=== PATIENT | female | born 2000 | race Caucasian/White ===

== ENCOUNTER 2019-08-04 22:24 | Outpatient (CLI) | payer BC, MEDICAID ==
[2019-08-04 23:28] LABS: APPEARANCE,URINE CLEAR; BILIRUBIN,URINE NEGATIVE (NEGATIVE); COLOR,URINE STRAW; GLUCOSE, URINE NEGATIVE (NEGATIVE); KETONES,URINE TRACE mg/dL (NEGATIVE); LEUKOCYTE ESTERASE,URINE NEGATIVE (NEGATIVE); NITRITE,URINE NEGATIVE (NEGATIVE); PROTEIN,URINE NEGATIVE (NEGATIVE); URINE SPECIFIC GRAVITY 1.004; UROBILINOGEN,URINE NEGATIVE mg/dL (<2.0)
[2019-08-04 23:40] LABS: URINE AMPHETAMINES SCREEN NEGATIVE; URINE BARBITURATES SCREEN NEGATIVE; URINE BENZODIAZEPINES SCREEN NEGATIVE; URINE COCAINE SCREEN NEGATIVE; URINE MARIJUANA (THC) SCREEN NEGATIVE; URINE METHADONE SCREEN NEGATIVE; URINE PHENCYCLIDINE SCREEN NEGATIVE
[2019-08-05] MEDS ORDERED: CEFTRIAXONE INJ 1000 MG VIAL IM ONE (00:09)
[2019-08-05] MEDS ORDERED: LIDOCAINE 1% INJ-PF (10 MG/ML) 30 ML SDV INJ ONE (00:09)
[2019-08-05] MEDS ORDERED: LIDOCAINE 1% INJ-PF (10 MG/ML) 30 ML SDV ONE (00:37)
[2019-08-05] MEDS ORDERED: CEFTRIAXONE INJ 1000 MG VIAL ONE (00:37)
== END 2019-08-05 00:59 | disposition home or self-care (01) ==
LOC: LC 22:24
PROVIDERS: ATTEND Student in an Organized Health Care Education/Training Program
PROC: 4A1HXCZ Monitoring of Products of Conception, Cardiac Rate, External Approach (ICD-10-PCS; principal; 2019-08-04)
DX: Z34.92 Encounter for supervision of normal pregnancy, unspecified, second trimester (principal); Z3A.21 21 weeks gestation of pregnancy
CPT/HCPCS: 59899; 87086; 81001; 80307; J3490; J0696

== ENCOUNTER → 2019-08-11 | Outpatient (CLI) | payer BC, MEDICAID ==
--- NOTE | 2019-08-11 10:15 | WOMENS IMAGING REPORT ---
EXAM DESCRIPTION: RETROPERITONEAL U/S COMPLETED DATE/TIME: 08/11/2019 8:46 am REASON FOR STUDY: N20.0 CALCULUS OF KIDNEY N20.0 CALCULUS OF KIDNEY COMPARISON: None. TECHNIQUE: Dynamic and static grayscale images acquired of the kidneys and bladder and recorded on P ACS. Additional selected color Doppler and spectral images recorded. LIMITATIONS: None. FINDINGS: RIGHT KIDNEY: 12 cm in length Normal echogenicity. No solid or suspicious masses. P atient is 23 weeks . The AP diameter of the right renal pelvis is 15 mm. This likely repres ents hydronephrosis of . No no right-sided intrarenal calcifications. LEFT KIDNEY: Normal size, 11.2 cm in length. Normal echogenicity. No solid or suspicious masses. No hydronephrosis. No calcifications. BLADDER: No masses. Left ureteral jet is identified OTHER FINDINGS: No other significant finding. IMPRESSION: Right-sided hydronephrosis, AP diameter of the renal pelvis 15 mm. This most likely rep resents hydronephrosis of . Patient is 23 weeks TECHNICAL DOCUMENTATION: JOB ID: [id number]- All Rights Reserved Reading location - IP/workstation name: [email or web address]
== END ==
LOC: WI 08:22
PROVIDERS: ATTEND Obstetrics & Gynecology
DX: N20.0 Calculus of kidney (principal)
CPT/HCPCS: 76770

== ENCOUNTER 2019-12-18 02:56 | Inpatient (IN) | payer BC, MEDICAID ==
[2019-12-18 03:14] LABS: APPEARANCE,URINE SLIGHTLY-CLOUDY; BILIRUBIN,URINE NEGATIVE (NEGATIVE); COLOR,URINE YELLOW; GLUCOSE, URINE NEGATIVE (NEGATIVE); KETONES,URINE NEGATIVE (NEGATIVE); LEUKOCYTE ESTERASE,URINE NEGATIVE (NEGATIVE); NITRITE,URINE NEGATIVE (NEGATIVE); PROTEIN,URINE NEGATIVE (NEGATIVE); UROBILINOGEN,URINE NEGATIVE mg/dL (<2.0)
[2019-12-18 03:32] LABS: URINE AMPHETAMINES SCREEN NEGATIVE; URINE BARBITURATES SCREEN NEGATIVE; URINE BENZODIAZEPINES SCREEN NEGATIVE; URINE COCAINE SCREEN NEGATIVE; URINE MARIJUANA (THC) SCREEN NEGATIVE; URINE METHADONE SCREEN NEGATIVE; URINE PHENCYCLIDINE SCREEN NEGATIVE
[2019-12-18] MEDS ORDERED: RINGERS SOLUTION,LACTATED 1,000 ML IV ONE (05:56)
[2019-12-18] MEDS ORDERED: RINGERS SOLUTION,LACTATED 1,000 ML IV PRN (05:56)
[2019-12-18] MEDS ORDERED: MISOPROSTOL 0.2 MG TABLET ONE (06:23)
[2019-12-18] MEDS ORDERED: OXYTOCIN 10 UNIT/ML VIAL ONE (06:23)
[2019-12-18] MEDS ORDERED: OXYTOCIN/NORMAL SALINE 20 UNIT/1,000 ML RTUINJ ONE (06:23)
[2019-12-18] MEDS ORDERED: LIDOCAINE 1% INJ-PF (10 MG/ML) 30 ML SDV ONE (06:23)
[2019-12-18 06:45] LABS: ABSOLUTE MONOCYTES (AUTO) 0.5 10^3/uL (0.1-1.4); ABSOLUTE NEUT (AUTO) 12.4 10^3/uL (1.7-8.2); EOSINOPHILS % (AUTO) 0.1 % (0-6); HEMATOCRIT 32.4 % (36.0-47.0); HEMOGLOBIN 11.2 g/dL (12.0-15.5); MEAN CORPUSCULAR HEMOGLOBIN 30.4 pg (27.0-33.4); MEAN CORPUSCULAR HGB CONC 34.6 g/dL (32.0-36.0); MEAN CORPUSCULAR VOLUME 88 fl (80-97); MONOCYTES % (AUTO) 3.8 % (3-13); PLATELET COUNT 201 10^3/uL (150-450); RED BLOOD COUNT 3.68 10^6/uL (3.72-5.28); SEGMENTED NEUTROPHILS % (AUTO) 89.1 % (42-78); TOTAL CELLS COUNTED % (AUTO) 100 %; WHITE BLOOD COUNT 13.9 10^3/uL (4.0-10.5)
[2019-12-18] MEDS ORDERED: OXYTOCIN/NORMAL SALINE 20 UNIT/1,000 ML RTUINJ IV PRN ×2 (07:14→15:21)
[2019-12-18] MEDS ORDERED: ONDANSETRON HCL INJ/PF 4 MG/2 ML SDV IV PRN (07:35)
[2019-12-18] MEDS ORDERED: NALBUPHINE HCL INJ 10 MG/1 ML AMPULE INJ ONE (07:35)
--- NOTE | 2019-12-18 07:35 | Admission Physical ---
Datetime Report Generated by CPN: 12/18/2019 07:35 CURRENT ADMISSION Chief Complaint: Uterine Contractions Indication for Induction: Post Dates Admit Impression : Term, Intrauterine ; Active Labor Admit Impression- Other: Early Active labor Admit Plan: Admit to Unit; Initiate Labor Protocol ALLERGIES Medication Allergies: No Medication Allergies: No Known Allergies (08/05/2019) Latex: Unknown Food Allergies: none Environmental Allergies: none OBSTETRICAL HISTORY EDC: 12/12/2019 00:00 : 1 Para: 0 Term: 0 : 0 SAB: 0 IAB: 0 Livin Gestational Diabetes: No Rh Sensitization: No Incompetent Cervix: No JEREMY: No Infertility: No ART Treatment: No Uterine Anomaly: No IUGR: No Hx Previous C/S: No Macrosomia: No Hx Loss/Stillborn: No PIH: No Hx : No Placenta Previa/Abruption: No Depression/PP Depression: No PTL/PROM: No Post Hemorrhage: No Obstetrical History Comments: G1: current SEE RECORDS Alcohol: No Marijuana : No Cocaine: No Other Illicit Drugs: No Cigarettes: Never Smoker. [id number] MEDICAL HISTORY Diabetes: No Blood Transfusion: No Pulmonary Disease (Asthma, TB): No Breast Disease: No Hypertension: No I&C Tech Surgery: No Heart Disease: No Hosp/Surgery: No Autoimmune Disorder: No Anesthetic Complications: No Kidney Disease: No Abnormal Pap Smear: No Neuro/Epilepsy: No Psychiatric Disorders: No Other Medical Diseases: No Hepatitis/Liver Disease: No Significant Family History: No Varicosities/Phlebitis: No Trauma/Violence : No Thyroid Dysfunction: No INFECTIOUS HISTORY Gonorrhea: No Genital Herpes: No Chlamydia: No Tuberculosis: No Syphilis: No Hepatitis: No HIV/AIDS Exposure: No Rash or Viral Illness: No HPV: No PHYSICAL EXAM General: Normal HEENT: Normal Neurologic: Normal Thyroid: Deferred Heart: Normal Lungs: Normal Breast: Deferred Back: Normal Abdomen: Normal Genitourinary Exam: Normal Extremities: Normal DTRs: Normal Pelvic Type: Adequate Vital Signs: Reviewed VAGINAL EXAM Dilatation: 3 Effacement: 90 Station: -1 Contraction Comments: q 4 MEMBRANES Membranes: Intact FETUS A EGA: 40.6 Monitoring: External US FHR- Baseline: 120 Variability: Moderate 6-25bpm Accelerations: 15X15 Decelerations: None FHR Category: Category I Presentation: Vertex Admit Comment: 19yo at 40+6ega presents for early labor and changed from FT to 2 cm since last week and now is /-1. Admit and augment with Pitocin. GBS negative. 44# weight gain. Consents obtained. Pt was scheduled for IOL tonight for cervidil but will admit now and augment. PLANS FOR LABOR AND DELIVERY Labor and Delivery: None Pain Management: Epidural Feeding Preference: Breast Benefit of Breast Feed Discussed: Yes Circumcision: N/A INFORMED CONSENT Informed Consent Obtained: Vaginal Delivery; Risks, Benefits and Alternatives Discussed Signature: with User ID: [email or web address]
[2019-12-18] MEDS ORDERED: NALBUPHINE HCL INJ 10 MG/1 ML AMPULE ONE (07:39)
[2019-12-18] MEDS ORDERED: ONDANSETRON HCL INJ/PF 4 MG/2 ML SDV ONE (07:40)
[2019-12-18] MEDS ORDERED: EPHEDRINE SULFATE INJ 50 MG/1 ML AMPULE ONE (09:15)
[2019-12-18] MEDS ORDERED: BUPIVACAINE HCL 0.25 % INJ/PF (2.5 MG/1 ML) 30 ML VIAL ONE (09:16)
[2019-12-18] MEDS ORDERED: FENTANYL/BUPIVACAINE/NS/PF 300 MCG/150 ML RTUINJ EPI ONE (09:16)
[2019-12-18] MEDS ORDERED: DIPH/PERTUSS(ACELL)/TETANUS VAC/PF 0.5 ML SYR (>=10YO) IM PRN (15:21)
[2019-12-18] MEDS ORDERED: PROMETHAZINE HCL 25 MG TABLET PO PRN (15:21)
[2019-12-18] MEDS ORDERED: MAGNESIUM HYDROXIDE SUSP 30 ML UDCUP PO PRN (15:21)
[2019-12-18] MEDS ORDERED: NA PHOS,M-B/NA PHOS,DI-BA (ADULT) 133 ML ENEMA PR PRN (15:21)
[2019-12-18] MEDS ORDERED: DIBUCAINE 1% OINTMENT 28 GM TP PRN (15:21)
[2019-12-18] MEDS ORDERED: PROMETHAZINE HCL INJ 25 MG/1 ML VIAL IV PRN (15:21)
[2019-12-18] MEDS ORDERED: PSEUDOEPHEDRINE HCL 30 MG TABLET PO PRN (15:21)
[2019-12-18] MEDS ORDERED: PROMETHAZINE HCL 25 MG SUPP.RECT PR PRN (15:21)
[2019-12-18] MEDS ORDERED: ACETAMINOPHEN 325 MG TABLET PO PRN (15:21)
[2019-12-18] MEDS ORDERED: GLYCERIN/WITCH HAZEL LEAF 1 EACH MED..WIPE TP PRN (15:21)
[2019-12-18] MEDS ORDERED: MEASLES,MUMPS&RUBELLA VACC/PF 0.5 ML VIAL SUBCUT PRN (15:21)
[2019-12-18] MEDS ORDERED: DIPHENHYDRAMINE HCL 25 MG CAPSULE PO PRN (15:21)
[2019-12-18] MEDS ORDERED: IBUPROFEN 800 MG TABLET ONE (16:35)
[2019-12-18] MEDS: IBUPROFEN 800 MG TABLET PO SCH ×2 (16:36→22:11)
--- NOTE | 2019-12-18 17:30 | Delivery Summary ---
Del Sum A-C Datetime Report Generated by CPN: 12/18/2019 17:30 DELIVERY PERSONNEL DELIVERY PERSONNEL: [id number] Delivery Doctor:: Sakina Worley CNM Labor and Delivery Nurse:: Kristan Emery RNlabel stitcher Nurse:: Cindi Saravia RN Nursery Nurse:: Martha Crawford RN [employer] Librarian/MOTOR TEACHER: Lore Ross, BASTING MARKER MATERNAL INFORMATION Delivery Anesthesia: Epidural Medications After Delivery: Pitocin Bolus-Please Comment; Pitocin Drip 20 Units/1000ml NSS Meds After Delivery Comment: 20 Units Pitocin/1000ml NS Delivery QBL: 529 Maternal Complications: None Provider Comments: pt allowed to labor down then started pushing and after much coaching went on to deliver a viable baby girl. Baby with spontaneous cry and vigorous respiratory effort at . Particulate meconinum noted at delivery. Baby wiped per mother's request and then placed on maternal abdomen, cord allowed to stop pulsating then clamped x2 and cut by FOB (3vc noted, cord blood collected). Placenta delivered spontaneously intact (circumvallate placenta noted and sent to lab) trailing membranes removed with ring forceps, bleeding stable (vaginal sweep done). Vaginal and perineal inspection revealed lacerations as stated above and hemostatic. Fundus firm, minimal bleeding, mother and baby stable upon exiting the room LABOR SUMMARY EDC: 12/12/2019 00:00 No. Babies in Womb: 1 Attempted: No Labor Anesthesia: Epidural LABOR INFORMATION Reason for Induction: Not Applicable Onset of Labor: 12/18/2019 04:00 Complete Dilatation: 12/18/2019 11:32 Oxytocin: Augmentation Group B Beta Strep: negative Antibiotics # of Doses: 0 Antibiotics Time of Last Dose: n/a Name of Antibiotic Given: n/a Steroids Given: None Reason Steroids Not Administered: Not Applicable MEMBRANES Membranes Rupture Method: Artificial Rupture of Membranes: 12/18/2019 11:32 Length of Rupture (hr): 3.13 Amniotic Fluid Color: Light Meconium Amniotic Fluid Amount: Moderate Amniotic Fluid Odor: None STAGES OF LABOR Stage 1 hr: 7 Stage 1 min: 32 Stage 2 hr: 3 Stage 2 min: 8 Stage 3 hr: 0 Stage 3 min: 9 Total Time in Labor hr: 10 Total Time in Labor min: 49 VAGINAL DELIVERY Episiotomy: None Laceration #1: Perineal; Vaginal Laceration Extension #1: First Degree Other Laceration: labial Laceration Repair: Yes Laceration Repair Note: MLL repaired in the usual fashion with 2-[address] Friable tissue but able to achieve hemostasis. Labial abrasion hemostatic, no need for repair Sponge Count Correct: Vaginal Sweep Performed Sharps Count Correct: Yes CSECTION DELIVERY Primary Indication: N/A Secondary Indication: N/A CSection Incidence: N/A Labor: N/A Elective: N/A CSection Incision: N/A BABY A INFORMATION Delivery Date/Time: 12/18/2019 14:40 Method of Delivery: Vaginal Born in Route : No : Failed Forceps: N/A Vacuum Extraction: N/A Shoulder Dystocia : No PRESENTATION/POSITION BABY A Presentation: Cephalic Cephalic Presentation: Vertex Vertex Position: Left Occipital Anterior Breech Presentation: N/A PLACENTA INFORMATION BABY A Placenta Delivery Time : 12/18/2019 14:49 Placenta Method of Delivery: Spontaneous Placenta Status: Delivered SCORES BABY A Heart Rate 1 min: >100 bpm Resp Effort 1 min: Good Cry Reflex Irritability 1 min: Cough or Sneeze or Pulls Away Muscle Tone 1 min: Active Motion Color 1 min: Blue/Pale Resuscitation Effort 1 min: Tactile Stimulation SCORE 1 MIN: 8 Heart Rate 5 min: >100 bpm Resp Effort 5 min: Good Cry Reflex Irritability 5 min: Cough or Sneeze or Pulls Away Muscle Tone 5 min: Active Motion Color 5 min: Body Wilcox, Extremities Blue Resuscitation Effort 5 min: Tactile Stimulation SCORE 5 MIN: 9 INFORMATION BABY A Gestational Age at Delivery: 40.6 Gestational Status: Full Term- 39- 40.6 Weeks Infant Outcome : Liveborn Infant Condition : Stable Sex: Female IDENTIFICATION BABY A Verification Date/Time: 12/18/2019 14:56 ID Band Number: [id number] Mother's Name Verified: Yes Infant RN Verifying : K.Crimm, RN Additional Verifying Personnel: MMobley,RN WEIGHT/LENGTH BABY A Birthweight (gm): 3833 Weight (lb): 8 Weight (oz): 7 Infant Length (in): 21.00 Infant Length (cm): 53.34 CORD INFORMATION BABY A No. Cord Vessels: 3 Nuchal Cord : N/A Cord Blood Taken: Yes-For Storage (Mom's Blood type +) Suction: None ASSESSMENT BABY A Infant Complications: Meconium Physical Findings at Delivery: Within Normal Limits Respirations: Appears Normal Skin to Skin: Yes Skin to Skin Time (min): 60 Care By: KCrimm, RN Transferred To: Remains with Mother BABY B INFORMATION : N/A SIGNATURES Assignment: Tor Forrester MD Signature: with User ID: Chana : with User ID: [email or web address]
[2019-12-18] MEDS ORDERED: LABETALOL HCL 200 MG TABLET PO SCH (18:00)
--- NOTE | 2019-12-18 18:35 | PDOC CONSULTATION ---
Consultation Consult Date: 12/18/19 Provider Consulted: ONEYDA FU Consult reason:: SVT History of Present Illness Admission Date/PCP: 12/18/19 05:59 COREY LEGER CNM Patient complains of: No complaints. She is History of Present Illness: SWATI DELGADO is a 19 year old female With no significant prior medical history. It appears that while the heart rate was being monitored the maternal heart rate was at times documented as 240 bpm and on other occasions 120 bpm. A twelve-lead EKG was obtained which showed sinus tachycardia. 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 This is her first and she was delivered of a healthy baby girl. The as well as delivery were uneventful. Patient did mention that her usual resting heart rate was mildly elevated and is in the low 100s. She does not report history suggestive of SVT such as episodes of palpitations presyncope or syncope or dizziness. No childhood illnesses reported. No surgeries or implants reported. She does not report use of tobacco to me. No familial illnesses reported to me. Social History Smoking Status: Never Smoker Family History Parental Family History Reviewed: No - No familial illnesses Children Family History Reviewed: Yes Sibling(s) Family History Reviewed.: NA Medication/Allergy Home Medications: Cetirizine HCl [Zyrtec 10 mg Tablet] 1 tab PO DAILY 08/04/19 Pnv No.95/Ferrous Fum/Folic AC [ Multivitamin Tablet] 1 each PO DAILY 08/04/19 Allergies/Adverse Reactions: No Known Allergies Allergy (Verified 08/05/19 04:44) Review of Systems Constitutional: ABSENT: as per HPI, anorexia, chills, fatigue, fever(s), headache(s), night sweats, weakness, weight gain, weight loss, other Ears: ABSENT: as per HPI, hearing changes, other Breasts: ABSENT: as per HPI, other Gastrointestinal: ABSENT: as per HPI, abdominal pain, bloating, coffee ground emesis, constipation, diarrhea, dysphagia, heartburn, hematemesis, hematochezia, melena, nausea, vomiting, other Neurological: ABSENT: as per HPI, abnormal gait, abnormal movements, abnormal speech, confusion, convulsions, dizziness, focal weakness, frequent falls, lack of coordination, memory loss, numbness, paresthesias, restless legs, syncope, tingling, tremor(s), vertigo, weakness, other Physical Exam Vital Signs: Intake & Output 12/17/19 12/18/19 12/19/19 06:59 06:59 06:59 Weight 72.9 kg General appearance: PRESENT: no acute distress, cooperative, well-developed Head exam: PRESENT: atraumatic, normocephalic Eye exam: PRESENT: conjunctiva pink, EOMI Mouth exam: PRESENT: moist, neck supple Respiratory exam: PRESENT: clear to auscultation ann, symmetrical, unlabored Cardiovascular exam: PRESENT: RRR, +S1, +S2, tachycardia Pulses: PRESENT: normal carotid pulses, normal radial pulses GI/Abdominal exam: PRESENT: soft Rectal exam: PRESENT: deferred Musculoskeletal exam: PRESENT: normal inspection Neurological exam: PRESENT: alert, awake, oriented to person, oriented to place, oriented to time, oriented to situation Psychiatric exam: PRESENT: appropriate affect Skin exam: PRESENT: dry, intact Results Laboratory Results: 12/18/19 06:24 12/18/19 12/18/19 12/18/19 03:03 06:24 06:24 WBC 13.9 H RBC 3.68 L Hgb 11.2 L Hct 32.4 L MCV 88 MCH 30.4 MCHC 34.6 RDW 14.0 Plt Count 201 Seg Neutrophils % 89.1 H Urine Color YELLOW Urine Appearance SLIGHTLY-CLOUDY Urine pH 6.0 Ur Specific [place] 1.010 Urine Protein NEGATIVE Urine Glucose (UA) NEGATIVE Urine Ketones NEGATIVE Urine Blood MODERATE H Urine Nitrite NEGATIVE Ur Leukocyte Esterase NEGATIVE Blood Type O POSITIVE Antibody Screen NEGATIVE EKG Comments: Twelve-lead EKG 12/18/2019 (5103). Independently reviewed by me. Sinus tachycardia 128 bpm, normal AV conduction, QTC is 450 ms White blood cell count is 13.9 Platelet count 201 Assessment & Plan - Diagnosis (1) Tachycardia with heart rate 100-120 beats per minute Is this a current diagnosis for this admission?: Yes Plan: Available evidence and twelve-lead EKG suggest the presence of sinus tachycardia which would be appropriate for the patient's current state. Monitor printouts had shown elevated maternal heart rates greater than 200 bpm. However the patient was completely asymptomatic and other other times the heart rate was half of this. Without the presence of documented telemetry strips showing the presence of supraventricular tachycardia it is rather difficult to entertain such a clarisse gnosis as monitor counters can be subject to interference and double counting amount other errors. If the patient does have symptoms of palpitation would recommend placing her on telemetry and obtaining a twelve-lead EKG should she become symptomatic. In the present circumstance, would not recommend initiation of pharmacotherapy. We will continue to follow.
[2019-12-18] MEDS: DOCUSATE SODIUM 100 MG CAPSULE PO SCH (18:41)
[2019-12-18] MEDS: FERROUS SULFATE 325 MG TABLET PO SCH (18:41)
[2019-12-18] MEDS: BENZOCAINE/MENTHOL AEROSOL SPRAY 56 ML TOP PRN (18:54)
--- NOTE | 2019-12-18 19:10 | EKG REPORT ---
SEVERITY:- OTHERWISE NORMAL ECG - SINUS TACHYCARDIA : Confirmed by: Jose Ivey MD 18-Dec-2019 19:09:02
[2019-12-18] MEDS: FAMOTIDINE 20 MG TABLET PO SCH (22:11)
[2019-12-19] MEDS: IBUPROFEN 800 MG TABLET PO SCH ×3 (05:20→22:08)
[2019-12-19] MEDS: BENZOCAINE/MENTHOL AEROSOL SPRAY 56 ML TOP PRN (05:21)
[2019-12-19 07:04] LABS: HEMATOCRIT 19.6 % (36.0-47.0); MEAN CORPUSCULAR HGB CONC 35.2 g/dL (32.0-36.0); MEAN CORPUSCULAR VOLUME 88 fl (80-97); PLATELET COUNT 183 10^3/uL (150-450); RED BLOOD COUNT 2.23 10^6/uL (3.72-5.28); RED CELL DISTRIBUTION WIDTH 14.4 % (11.5-14.0); WHITE BLOOD COUNT 13.8 10^3/uL (4.0-10.5)
[2019-12-19 07:11] LABS: HEMOGLOBIN 6.9 g/dL (12.0-15.5)
[2019-12-19] MEDS: SENNOSIDES/DOCUSATE 8.6-50 MG 1 EACH TABLET PO SCH (10:17)
[2019-12-19] MEDS: DOCUSATE SODIUM 100 MG CAPSULE PO SCH ×2 (10:17→17:54)
[2019-12-19] MEDS: PRENATAL VITAMIN W DHA CAPSULE PO SCH (10:17)
[2019-12-19] MEDS: FERROUS SULFATE 325 MG TABLET PO SCH ×2 (10:17→17:54)
[2019-12-19] MEDS: FAMOTIDINE 20 MG TABLET PO SCH ×2 (10:17→22:08)
--- NOTE | 2019-12-19 12:41 | PDOC PROGRESS REPORT ---
Subjective Progress Note for:: 12/19/19 Subjective:: Patient was seen and examined today. She is resting in a chair. Her baby is being breast-fed. She does not report any palpitations. No tachycardia is reported. Reason For Visit: Physical Exam Vital Signs: Temp Pulse Resp BP Pulse Ox 97.6 F 105 H 16 104/59 L 100 12/19/19 11:08 12/19/19 11:08 12/19/19 11:08 12/19/19 11:08 12/19/19 11:08 Intake & Output 12/18/19 12/19/19 12/20/19 06:59 06:59 06:59 Weight 72.9 kg General appearance: PRESENT: no acute distress, cooperative, well-developed, well-nourished Head exam: PRESENT: atraumatic, normocephalic Eye exam: PRESENT: conjunctiva pink, EOMI Respiratory exam: PRESENT: clear to auscultation ann, symmetrical, unlabored Cardiovascular exam: PRESENT: RRR, +S1, +S2 Pulses: PRESENT: normal radial pulses Rectal exam: PRESENT: deferred Neurological exam: PRESENT: alert, awake, oriented to person, oriented to place, oriented to time, oriented to situation Psychiatric exam: PRESENT: appropriate affect Skin exam: PRESENT: dry, intact, normal color Results Laboratory Results: 12/19/19 06:23 12/19/19 06:23 WBC 13.8 H RBC 2.23 L Hgb 6.9 L D Hct 19.6 L MCV 88 MCH 31.0 MCHC 35.2 RDW 14.4 H Plt Count 183 Assessment & Plan - Diagnosis (1) Tachycardia with heart rate 100-120 beats per minute Is this a current diagnosis for this admission?: Yes Plan: No palpitations reported No documented arrhythmia Sinus tachycardia will be quite appropriate for state. Hopefully the heart rate should come down Would hold off on initiation of antiarrhythmic therapy or rate control agents.
--- NOTE | 2019-12-19 16:53 | PDOC PROGRESS REPORT ---
Subjective-OB Progress Note for:: 12/19/19 Subjective: reports bleeding slowing, pain controlled with current meds. denies needs Physical Exam (OB) Vital Signs: Temp Pulse Resp BP Pulse Ox 97.4 F 121 H 16 117/64 100 12/19/19 15:21 12/19/19 15:21 12/19/19 15:21 12/19/19 15:21 12/19/19 15:21 Intake & Output 12/18/19 12/19/19 12/20/19 06:59 06:59 06:59 Weight 72.9 kg - Abdomen Description: Soft Hernia Present: No Fundal Description: Firm, Midline Fundal Height: u/u - u/2 - Abdominal Distension: No distension Tenderness: Nontender - Extremities Lower extremities: Dai's sign - neg Calf: Normal, Nontender Objective-Diagnostic Laboratory: 12/19/19 06:23 12/19/19 06:23 WBC 13.8 H RBC 2.23 L Hgb 6.9 L D Hct 19.6 L MCV 88 MCH 31.0 MCHC 35.2 RDW 14.4 H Plt Count 183 Assessment and Plan(PN) - Time Spent with Patient Time with patient: Less than 15 minutes - Disposition Anticipated Discharge: Home Within: within 24 hours
[2019-12-20] MEDS: IBUPROFEN 800 MG TABLET PO SCH ×3 (05:07→21:04)
[2019-12-20 07:33] LABS: ABSOLUTE EOSINOPHILS # (AUTO) 0.1 10^3/uL (0.0-0.6); ABSOLUTE LYMPHOCYTES (AUTO) 1.3 10^3/uL (0.5-4.7); ABSOLUTE MONOCYTES (AUTO) 0.5 10^3/uL (0.1-1.4); ABSOLUTE NEUT (AUTO) 7.7 10^3/uL (1.7-8.2); BASOPHILS % (AUTO) 0.1 % (0-2); EOSINOPHILS % (AUTO) 1.2 % (0-6); HEMATOCRIT 19.3 % (36.0-47.0); LYMPHOCYTES % (AUTO) 13.9 % (13-45); MEAN CORPUSCULAR HGB CONC 35.5 g/dL (32.0-36.0); MEAN CORPUSCULAR VOLUME 88 fl (80-97); MONOCYTES % (AUTO) 5.4 % (3-13); PLATELET COUNT 161 10^3/uL (150-450); RED BLOOD COUNT 2.21 10^6/uL (3.72-5.28); RED CELL DISTRIBUTION WIDTH 14.3 % (11.5-14.0); SEGMENTED NEUTROPHILS % (AUTO) 79.4 % (42-78); TOTAL CELLS COUNTED % (AUTO) 100 %; WHITE BLOOD COUNT 9.7 10^3/uL (4.0-10.5)
[2019-12-20 07:44] LABS: HEMOGLOBIN 6.9 g/dL (12.0-15.5)
[2019-12-20] MEDS ORDERED: IRON SUCROSE COMPLEX INJ/PF 100 MG/5 ML SDV IV ONE (08:45)
[2019-12-20] MEDS: PRENATAL VITAMIN W DHA CAPSULE PO SCH (10:35)
[2019-12-20] MEDS: DOCUSATE SODIUM 100 MG CAPSULE PO SCH ×2 (10:35→17:06)
[2019-12-20] MEDS: SENNOSIDES/DOCUSATE 8.6-50 MG 1 EACH TABLET PO SCH (10:35)
[2019-12-20] MEDS: FAMOTIDINE 20 MG TABLET PO SCH ×2 (10:35→21:05)
[2019-12-20] MEDS: FERROUS SULFATE 325 MG TABLET PO SCH ×2 (10:35→17:06)
[2019-12-20] MEDS ORDERED: NORMAL SALINE 250 ML IV PRN (11:36)
--- NOTE | 2019-12-20 15:13 | PDOC PROGRESS REPORT ---
Subjective-OB Progress Note for:: 12/20/19 Subjective: 19yo G1 now P1 s/p ppd 2. Pt ambulating, voiding and without difficulty, pale and remains tachycardic. Reports pain well controlled by medication, no concerns today, other than very tired. Agreeable to blood transfusion, baby on bili lights, will not be discharged today Physical Exam (OB) Vital Signs: Temp Pulse Resp BP Pulse Ox 97.8 F 107 H 16 115/77 100 12/20/19 11:07 12/20/19 11:07 12/20/19 11:07 12/20/19 11:07 12/20/19 11:07 - General General Appearance: Appears well In distress: None - PIH/Pre-Eclampsia DTR's: 1 + Clonus: Negative Headache: Absent Epigastric Pain: No Visual Changes: No - Episiotomy/Laceration Site Condition: Well Approximated - Lochia Lochia Amount: Scant < 10 ml Lochia Color: Rubra/Red - Abdomen Description: Soft, Round Hernia Present: No Fundal Description: Firm, Midline Fundal Height: u/u - u/2 - Respiratory Respiratory Status: No respiratory distress - Extremities Upper extremity: Normal inspection Lower extremities: Normal inspection - Neurological Cognition: Normal Orientation: AAOx4 - Psychological Associated symptoms: Normal affect, Normal mood Objective-Diagnostic Laboratory: 12/20/19 06:57 12/18/19 12/20/19 06:24 06:57 WBC 9.7 RBC 2.21 L Hgb 6.9 L Hct 19.3 L MCV 88 MCH 31.0 MCHC 35.5 RDW 14.3 H Plt Count 161 Seg Neutrophils % 79.4 H Blood Type O POSITIVE Antibody Screen NEGATIVE Assessment and Plan(PN) - Assessment and Plan (1) Blood transfusion during current hospitalisation Is this a current diagnosis for this admission?: Yes Plan: ordered, will plan on repeat CBC tonight (2) Active labor at term Is this a current diagnosis for this admission?: Yes Plan: delivered (3) Acute blood loss anemia Is this a current diagnosis for this admission?: Yes Plan: increase dietary iron and FeSO4 BID agreeable to blood transfusion and IV iron also given (4) Labial abrasion, delivered, current hospitalization Is this a current diagnosis for this admission?: Yes Plan: continue to monitor for s/s of infection (5) Perineal laceration during delivery, delivered Is this a current diagnosis for this admission?: Yes Plan: continue to monitor for s/s of pre-e infection (6) hemorrhage Qualifiers: hemorrhage type: third-stage Qualified Code(s): O72.0 - Third- stage hemorrhage Is this a current diagnosis for this admission?: Yes Plan: agreeable to blood transfusion continue to monitor, pt stable at this time (7) Tachycardia with heart rate 100-120 beats per minute Is this a current diagnosis for this admission?: Yes Plan: EKG after delivery, cleared by cardiac consult, continue to monitor (8) Vaginal delivery Is this a current diagnosis for this admission?: Yes Plan: routine pp care - Time Spent with Patient Time with patient: 15-25 minutes Medications reviewed and adjusted accordingly: Yes - Disposition Anticipated Discharge: Home Within: within 24 hours
[2019-12-21 00:32] LABS: HEMATOCRIT 27.1 % (36.0-47.0); MEAN CORPUSCULAR HEMOGLOBIN 31.1 pg (27.0-33.4); MEAN CORPUSCULAR HGB CONC 35.1 g/dL (32.0-36.0); MEAN CORPUSCULAR VOLUME 88 fl (80-97); PLATELET COUNT 190 10^3/uL (150-450); RED BLOOD COUNT 3.06 10^6/uL (3.72-5.28); RED CELL DISTRIBUTION WIDTH 14.3 % (11.5-14.0); WHITE BLOOD COUNT 13.7 10^3/uL (4.0-10.5)
[2019-12-21 00:33] LABS: HEMOGLOBIN 9.5 g/dL (12.0-15.5)
[2019-12-21] MEDS: IBUPROFEN 800 MG TABLET PO SCH (05:07)
[2019-12-21 08:39] VITALS: BP 121/83
[2019-12-21] MEDS: SENNOSIDES/DOCUSATE 8.6-50 MG 1 EACH TABLET PO SCH (09:24)
[2019-12-21] MEDS: DOCUSATE SODIUM 100 MG CAPSULE PO SCH (09:24)
[2019-12-21] MEDS: FERROUS SULFATE 325 MG TABLET PO SCH (09:24)
[2019-12-21] MEDS: FAMOTIDINE 20 MG TABLET PO SCH (09:24)
[2019-12-21] MEDS: PRENATAL VITAMIN W DHA CAPSULE PO SCH (09:24)
--- NOTE | 2019-12-21 11:34 | PDOC DISCHARGE SUMMARY ---
Impression - Admit/DC Date/PCP Admission Date/Primary Care Provider: 12/18/19 05:59 KESHIA AWAN MD Discharge Date: 12/21/19 - Discharge Diagnosis (1) Active labor at term Is this a current diagnosis for this admission?: Yes (2) Acute blood loss anemia Is this a current diagnosis for this admission?: Yes (3) Blood transfusion during current hospitalisation Is this a current diagnosis for this admission?: Yes (4) Labial abrasion, delivered, current hospitalization Is this a current diagnosis for this admission?: Yes (5) Perineal laceration during delivery, delivered Is this a current diagnosis for this admission?: Yes (6) hemorrhage Is this a current diagnosis for this admission?: Yes (7) Tachycardia with heart rate 100-120 beats per minute Is this a current diagnosis for this admission?: Yes (8) Vaginal delivery Is this a current diagnosis for this admission?: Yes - Additional Information Resuscitation Status: Full Code Discharge Diet: Regular Discharge Activity: Activity As Tolerated, No Lifting Over 10 Pounds, No tub bath Referrals: KESHIA AWAN MD [Primary Care Provider] - Home Medications: Cetirizine HCl [Zyrtec 10 mg Tablet] 1 tab PO DAILY 08/04/19 Pnv No.95/Ferrous Fum/Folic AC [ Multivitamin Tablet] 1 each PO DAILY 08/04/19 HPI Gestational Age: 40.6 Reason(s) for Admission: Onset of Labor Procedures: NST Intrapartum Procedure(s): Spontaneous Vaginal Delivery Complication(s): Laceration-Vaginal Laceration-Degree: 1st Results Laboratory Results: WBC 13.7 10^3/uL (4.0-10.5) H 12/21/19 00:23 RBC 3.06 10^6/uL (3.72-5.28) L 12/21/19 00:23 Hgb 9.5 g/dL (12.0-15.5) L D 12/21/19 00:23 Hct 27.1 % (36.0-47.0) L 12/21/19 00:23 MCV 88 fl (80-97) 12/21/19 00:23 MCH 31.1 pg (27.0-33.4) 12/21/19 00:23 MCHC 35.1 g/dL (32.0-36.0) 12/21/19 00:23 RDW 14.3 % (11.5-14.0) H 12/21/19 00:23 Plt Count 190 10^3/uL (150-450) 12/21/19 00:23 Lymph % (Auto) 13.9 % (13-45) 12/20/19 06:57 [place] % (Auto) 5.4 % (3-13) 12/20/19 06:57 Eos % (Auto) 1.2 % (0-6) 12/20/19 06:57 Baso % (Auto) 0.1 % (0-2) 12/20/19 06:57 Absolute Neuts (auto) 7.7 10^3/uL (1.7-8.2) 12/20/19 06:57 Absolute Lymphs (auto) 1.3 10^3/uL (0.5-4.7) 12/20/19 06:57 Absolute Monos (auto) 0.5 10^3/uL (0.1-1.4) 12/20/19 06:57 Absolute Eos (auto) 0.1 10^3/uL (0.0-0.6) 12/20/19 06:57 Absolute Basos (auto) 0.0 10^3/uL (0.0-0.2) 12/20/19 06:57 Seg Neutrophils % 79.4 % (42-78) H 12/20/19 06:57 Urine Color YELLOW 12/18/19 03:03 Urine Appearance SLIGHTLY-CLOUDY 12/18/19 03:03 Urine pH 6.0 (5.0-9.0) 12/18/19 03:03 Ur Specific [place] 1.010 12/18/19 03:03 Urine Protein NEGATIVE mg/dL (NEGATIVE) 12/18/19 03:03 Urine Glucose (UA) NEGATIVE mg/dL (NEGATIVE) 12/18/19 03:03 Urine Ketones NEGATIVE mg/dL (NEGATIVE) 12/18/19 03:03 Urine Blood MODERATE (NEGATIVE) H 12/18/19 03:03 Urine Nitrite NEGATIVE (NEGATIVE) 12/18/19 03:03 Urine Bilirubin NEGATIVE (NEGATIVE) 12/18/19 03:03 Urine Urobilinogen NEGATIVE mg/dL (<2.0) 12/18/19 03:03 Ur Leukocyte Esterase NEGATIVE (NEGATIVE) 12/18/19 03:03 Urine Ascorbic Acid 20 (NEGATIVE) H 12/18/19 03:03 Urine Opiates Screen NEGATIVE 12/18/19 03:03 Urine Methadone Screen NEGATIVE 12/18/19 03:03 Ur Barbiturates Screen NEGATIVE 12/18/19 03:03 Ur Phencyclidine Scrn NEGATIVE 12/18/19 03:03 Ur Amphetamines Screen NEGATIVE 12/18/19 03:03 U Benzodiazepines Scrn NEGATIVE 12/18/19 03:03 Urine Cocaine Screen NEGATIVE 12/18/19 03:03 U Marijuana (THC) Screen NEGATIVE 12/18/19 03:03 RPR NONREACTIVE (NONREACTIVE) 12/18/19 06:24 Blood Type O POSITIVE 12/18/19 06:24 Blood Type Confirm O POSITIVE 12/18/19 06:24 Antibody Screen NEGATIVE 12/18/19 06:24 Crossmatch See Detail 12/18/19 06:24 Plan Plan of Treatment: f/u at [facility] 4 wks Time Spent: Less than 30 Minutes
--- NOTE | 2019-12-21 13:25 | PDOC PROGRESS REPORT ---
Subjective Progress Note for:: 12/21/19 Subjective:: Patient seen standing in room. He is being discharged today. Reports no palpitations. Heart rate this morning was about 94 bpm. Reason For Visit: Physical Exam Vital Signs: Temp Pulse Resp BP Pulse Ox 97.8 F 101 H 16 121/83 100 12/21/19 10:09 12/21/19 10:09 12/21/19 10:09 12/21/19 10:09 12/21/19 10:09 Intake & Output 12/20/19 12/21/19 12/22/19 06:59 06:59 06:59 Intake Total 1500 400 Balance 1500 400 General appearance: PRESENT: no acute distress, cooperative, well-developed, well-nourished Head exam: PRESENT: atraumatic, normocephalic Eye exam: PRESENT: EOMI Respiratory exam: PRESENT: symmetrical, unlabored Neurological exam: PRESENT: alert, awake, oriented to person, oriented to place, oriented to time, oriented to situation Psychiatric exam: PRESENT: appropriate affect Results Laboratory Results: 12/21/19 00:23 12/18/19 12/21/19 06:24 00:23 WBC 13.7 H RBC 3.06 L Hgb 9.5 L D Hct 27.1 L MCV 88 MCH 31.1 MCHC 35.1 RDW 14.3 H Plt Count 190 Blood Type O POSITIVE Antibody Screen NEGATIVE Assessment & Plan - Diagnosis (1) Tachycardia with heart rate 100-120 beats per minute Is this a current diagnosis for this admission?: Yes Plan: No palpitations reported No documented arrhythmia Sinus tachycardia will be quite appropriate for state. Presently not tachycardic. Probably appropriate tachycardia for state which is now resolved. Would recommend outpatient evaluation in the office for follow-up
== END 2019-12-21 13:26 | disposition home or self-care (01) | DRG 806 ==
LOC: LC 02:56 → LR 05:59 → 2S 18:24
PROVIDERS: ADMIT Student in an Organized Health Care Education/Training Program; ATTEND Student in an Organized Health Care Education/Training Program
PROC: 10E0XZZ Delivery of Products of Conception, External Approach (ICD-10-PCS; principal; 2019-12-18)
PROC: 0HQ9XZZ Repair Perineum Skin, External Approach (ICD-10-PCS; 2019-12-18)
PROC: 10907ZC Drainage of Amniotic Fluid, Therapeutic from Products of Conception, Via Natural or Artificial Opening (ICD-10-PCS; 2019-12-18)
PROC: 30233N1 Transfusion of Nonautologous Red Blood Cells into Peripheral Vein, Percutaneous Approach (ICD-10-PCS; 2019-12-20)
DX: O48.0 Post-term pregnancy (principal); D62 Acute posthemorrhagic anemia; Z37.0 Single live birth; O99.43 Diseases of the circulatory system complicating the puerperium; O72.0 Third-stage hemorrhage; O90.81 Anemia of the puerperium; O70.0 First degree perineal laceration during delivery; Z3A.40 40 weeks gestation of pregnancy; R00.0 Tachycardia, unspecified
CPT/HCPCS: 1967; 36415; 36430; 80307; 81005; 85025; 85027; 86592; 86850; 86900; 86901; 86920; 88307; 93005; 93010; 94760; J1756; J2300; J2405; J2590; J3010; J3490; P9016